=== PATIENT | female | born 1995 | race Caucasian/White ===

== ENCOUNTER 2021-08-24 21:49 | Emergency (ER) | payer SELFPAY ==
[~2021-08-24] VITALS: Ht 162.6 cm; Wt 81.3 kg
[2021-08-24] MEDS ORDERED: ONDANSETRON PF 4 MG/2 ML VIAL. IVP ONE (22:00)
[2021-08-24] MEDS ORDERED: IV NORMAL SALINE 1000ML BAG 1,000 ML IV ONE (22:00)
--- NOTE | 2021-08-24 22:04 | PHYS DOC ---
Past Medical History Past Medical History: Seizure Smoking Status: Current Every Day Smoker Alcohol Use: Occasionally General Adult EDM: Chief Complaint: intoxicated HPI: HPI: Patient is a 25 year old female who was brought here by EMS from a CONCERT EVENT DUE TO INTOXICATION AND SEIZURE ACTIVITY. Per EMS report, patient admitted of drinking heavy amount of alcohol and smoked weed today at the concert with her boyfriend. The boyfriend said she passed out while she was sta nding with him so he caught her and laid her down. He said she was not shaking like she was having a seizure. Patient does have a history of seizure disorder but is not taking any medication for it. Patient did see a neurologist at , was diagnosed with epilepsy. She was prescribed antiseizure medication but did not take it because she listened to the advise of a medical marijuana doctor who recommended for her to use marijuana to treat her seizure instead of taking the antiseizure medication because of the side effect. Patient said she has not have any seizure activity since smoking marijjuana. Patient is also on diazepam for anxiety. EMS WAS CALLED TO TAKE HER HERE FOR EVALUATION. ON ROUTE HERE, PATIENT VOMITED MULTIPLE TIMES. Review of Systems: Review of Systems: Constitutional: Denies fever or chills. [] Eyes: Denies change in visual acuity. [] HENT: Denies nasal congestion or sore throat. [] Respiratory: Denies cough or shortness of breath. [] Cardiovascular: Denies chest pain or edema. [] GI: Denies abdominal pain, nausea, vomiting, bloody stools or diarrhea. [] : Denies dysuria. [] Musculoskeletal: Denies back pain or joint pain. [] Integument: Denies rash. [] Neurologic: Denies headache, focal weakness or sensory changes. [] Endocrine: Denies polyuria or polydipsia. [] Lymphatic: Denies swollen glands. [] Psychiatric: Denies depression or anxiety. [] Heart Score: C/O Chest Pain: N/A Risk Factors: Risk Factors: DM, Current or recent (<one month) smoker, HTN, HLP, family history of CAD, obesity. Risk Scores: Score 0 - 3: 2.5% MACE over next 6 weeks - Discharge Home Score 4 - 6: 20.3% MACE over next 6 weeks - Admit for Clinical Observation Score 7 - 10: 72.7% MACE over next 6 weeks - Early Invasive Strategies Current Medications: Current Medications Medications (Trade) Dose Ordered Sig/Danilo Start Time Stop Time Status Last Admin Dose Admin Ondansetron HCl (Zofran) 8 mg 1X ONCE 08/24/21 22:00 08/24/21 22:01 UNV Sodium Chloride 1,000 ml @ 1,000 mls/hr 1X ONCE 08/24/21 22:00 08/24/21 22:59 UNV Physical Exam: PE: Constitutional: Well developed, well nourished, reeked of alcohol. HENT: Normocephalic, atraumatic, bilateral external ears normal, oropharynx moist, no oral exudates, nose normal. FOOT PARTICLES AROUND MOUTH AREA. Eyes: PERRLA, EOMI, conjunctiva normal, no discharge. [] Neck: Normal range of motion, no tenderness, supple, no stridor. [] Cardiovascular:Heart rate regular rhythm, no murmur [] Lungs & Thorax: Bilateral breath sounds clear to auscultation [] Abdomen: Bowel sounds normal, soft, no tenderness, no masses, no pulsatile masses. [] Skin: Warm AND DIAPHORESIS. Back: No tenderness, no CVA tenderness. [] Extremities: No tenderness, no cyanosis, no clubbing, ROM intact, no edema. [] Neurologic: Alert and oriented X 3, normal motor function, normal sensory function, no focal deficits noted. [] Psychologic: Affect normal, judgement normal, mood normal. [] Current Patient Data: Labs: Laboratory Tests Test 08/24/21 22:35 08/24/21 23:44 White Blood Count 9.0 x10^3/uL Red Blood Count 4.42 x10^6/uL Hemoglobin 13.8 g/dL Hematocrit 40.7 % Mean Corpuscular Volume 92 fL Mean Corpuscular Hemoglobin 31 pg Mean Corpuscular Hemoglobin Concent 34 g/dL Red Cell Distribution Width 13.6 % Platelet Count 393 x10^3/uL Neutrophils (%) (Auto) 66 % Lymphocytes (%) (Auto) 25 % Monocytes (%) (Auto) 7 % Eosinophils (%) (Auto) 1 % Basophils (%) (Auto) 1 % Neutrophils # (Auto) 6.0 x10^3/uL Lymphocytes # (Auto) 2.3 x10^3/uL Monocytes # (Auto) 0.6 x10^3/uL Eosinophils # (Auto) 0.1 x10^3/uL Basophils # (Auto) 0.1 x10^3/uL Sodium Level 141 mmol/L Potassium Level 3.8 mmol/L Chloride Level 106 mmol/L Carbon Dioxide Level 26 mmol/L Anion Gap 9 Blood Urea Nitrogen 4 mg/dL Creatinine 0.7 mg/dL Estimated GFR (Cockcroft-Gault) 100.4 BUN/Creatinine Ratio 6 Glucose Level 104 mg/dL Calcium Level 8.4 mg/dL Magnesium Level 2.2 mg/dL Total Bilirubin 0.2 mg/dL Aspartate Amino Transf (AST/SGOT) 16 U/L Alanine Aminotransferase (ALT/SGPT) 20 U/L Alkaline Phosphatase 71 U/L Creatine Kinase 140 U/L Total Protein 6.8 g/dL Albumin 3.5 g/dL Albumin/Globulin Ratio 1.1 Ethyl Alcohol Level 266 mg/dL Bedside Urine HCG, Qualitative Hcg negative Current Medications Medications (Trade) Dose Ordered Sig/Danilo Route PRN Reason Start Time Stop Time Status Last Admin Dose Admin Sodium Chloride 1,000 ml @ 1,000 mls/hr 1X ONCE IV 08/24/21 22:00 08/24/21 22:59 DC 08/24/21 22:46 Ondansetron HCl (Zofran) 8 mg 1X ONCE IVP 08/24/21 22:00 08/24/21 22:10 DC 08/24/21 22:50 EKG: EKG: [] Course & Med Decision Making: Course & Med Decision Making Pertinent Labs and Imaging studies reviewed. (See chart for details) Patient is a 25-year-old female who was brought here by EMS from a concert event due to alcohol intoxication. Patient was given IV fluid in ER, she was awake alert oriented, able to get up and walk without a problem. Patient boyfriend was here to take her home. Zackary Disclaimer: Zackary Disclaimer: This electronic medical record was generated, in whole or in part, using a voice recognition dictation system. Departure Departure Impression: Primary Impression: Alcohol intoxication Disposition: HOME / SELF CARE / HOMELESS Condition: STABLE Patient Instructions: Alcohol Intoxication Additional Instructions: Thank you for visiting our Emergency Department. We appreciate you trusting us with your care. If any additional problems come up don't hesitate to return to visit us. Please follow up with your primary care provider so they can plan additional care if needed and know about the problem that you had. If symptoms worsen come back to the Emergency Department. Any concerning symptoms that start such as chest pain, shortness of air, weakness or numbness on one side of the body, running high fevers or any other concerning symptoms return to the ER. Please follow-up with your neurologist at [facility] for your seizure problem in 1 to 2 days. TIMI MOODY DO Aug 24, 2021 22:04
[2021-08-24 23:23] LABS: BASO # 0.1 x10^3/uL (0.0-0.2); BASO % 1 % (0-3); EOS # 0.1 x10^3/uL (0.0-0.7); EOS % 1 % (0-3); HEMATOCRIT 40.7 % (36.0-47.0); HEMOGLOBIN 13.8 g/dL (12.0-15.5); LYMPH # 2.3 x10^3/uL (1.0-4.8); LYMPH % 25 % (24-48); MEAN CORPUSCULAR HEMOGLOBIN 31 pg (25-35); MEAN CORPUSCULAR HGB CONC 34 g/dL (31-37); MEAN CORPUSCULAR VOLUME 92 fL (79-100); MONO # 0.6 x10^3/uL (0.0-1.1); MONO % 7 % (0-9); NEUT % 66 % (31-73); PLATELET COUNT 393 x10^3/uL (140-400); RED BLOOD COUNT 4.42 x10^6/uL (3.50-5.40); RED CELL DISTRIBUTION WIDTH 13.6 % (11.5-14.5)
[2021-08-24 23:32] LABS: CALCIUM 8.4 mg/dL (8.5-10.1); CREATININE 0.7 mg/dL (0.6-1.0); GFR 100.4; POTASSIUM 3.8 mmol/L (3.5-5.1)
[2021-08-24 23:38] LABS: ALBUMIN 3.5 g/dL (3.4-5.0); ALBUMIN/GLOBULIN RATIO 1.1 (1.0-1.7); MAGNESIUM 2.2 mg/dL (1.8-2.4); TOTAL BILIRUBIN 0.2 mg/dL (0.2-1.0); TOTAL PROTEIN 6.8 g/dL (6.4-8.2)
[2021-08-24 23:50] LABS: BILIRUBIN,URINE NEGATIVE (NEG); CLARITY,URINE CLEAR; COLOR,URINE YELLOW; NITRITE,URINE NEGATIVE (NEG); PROTEIN,URINE NEGATIVE (NEG-TRACE); UROBILINOGEN,URINE 0.2 mg/dL (0.2 mg/dL)
[2021-08-24 23:59] LABS: BACTERIA,URINE FEW /HPF (0-FEW); RBC,URINE 0 /HPF (0-2); WBC,URINE OCC /HPF (0-4)
[2021-08-25 00:01] VITALS: BP 120/76
[2021-08-25 00:19] LABS: BARBITURATES NEG (NEG); BENZODIAZEPINES NEG (NEG); CANNABINOIDS POS (NEG); COCAINE NEG (NEG); METHADONE NEG (NEG); OPIATES NEG (NEG); PHENCYCLIDINE NEG (NEG)
[2021-08-25 00:21] LABS: AMPHETAMINE/METHAMPHETAMINE NEG (NEG)
== END 2021-08-25 00:25 | disposition home or self-care (01) ==
LOC: ER 21:49
DX: F10.129 Alcohol abuse with intoxication, unspecified (principal); Y90.8 Blood alcohol level of 240 mg/100 ml or more; F17.200 Nicotine dependence, unspecified, uncomplicated
CPT/HCPCS: 36415; 80053; 80307; 81001; 81025; 82550; 83735; 85025; 96361; 96374; 99285; G0480; J2405; J7030